=== PATIENT | male | born 1995 | race Caucasian/White ===

== ENCOUNTER 2018-03-04 19:38 | Emergency (ER) | payer BC ==
[2018-03-04 19:59] VITALS: BP 134/82
--- NOTE | 2018-03-04 20:08 | UC ---
Respiratory Complaint HPI - HPI Summary HPI Summary: Pt c/o bronchospastic cough X 1 week that he states is worsening. Pt c/o generalized malaise, nasal congestion, bronchospastic cough and chills. Pt states that he feels like he has "the flu and bronchitis" - History of Current Complaint Stated Complaint: CHEST CONGESTION, COUGH Time Seen by Provider: 03/04/18 19:50 Hx Obtained From: Patient Onset/Duration: Sudden Onset, Lasting Days - 7, Still Present, Worse Since - onset Timing: Intermittent Episodes Severity Initially: Mild Severity Currently: Moderate Pain Intensity: 5 Character: Cough: Nonproductive Aggravating Factors: Allergens, Deep Breaths, Recumbent Position Alleviating Factors: Nothing Associated Signs And Symptoms: Positive: Wheezing, URI, Nasal Congestion - Risk Factors Pulmonary Embolism Risk Factors: Negative Cardiac Risk Factors: Negative Pseudomonas Risk Factors: Negative Tuberculosis Risk Factors: Negative - Allergies/Home Medications Allergies/Adverse Reactions: Allergies Allergy/AdvReac Type Severity Reaction Status Date / Time Antibiotic related to Allergy Swelling Uncoded 03/04/18 20:02 Augmentin Throat augmentin Allergy Hives Uncoded 03/04/18 20:00 Home Medications: Home Medications Dextromethorphan HBr [Vicks Dayquil Cough] 1 dose PO SEE INSTRUCTIONS PRN [History Confirmed 03/04/18] PMH/Surg Hx/FS Hx/Imm Hx Previously Healthy: Yes Other History Of: Negative For: HIV, Hepatitis B, Hepatitis C, Anticoagulant Therapy - Surgical History Surgical History: Yes Surgery Procedure, Year, and Place: left eye skin removal; tonsils 2017 - Family History Known Family History: Positive: Cardiac Disease, Hypertension Negative: Diabetes - Social History Occupation: Employed Full-time Lives: With Family Alcohol Use: Occasionally Substance Use Type: None Smoking Status (MU): Former Smoker Type: Cigarettes Amount Used/How Often: 1 ppd Have You Smoked in the Last Year: No When Did the Patient Quit Smoking/Using Tobacco: 15yrs Household Exposure Type: Cigarettes Review of Systems Constitutional: Chills, Fatigue Skin: Negative Eyes: Negative ENT: Sore Throat Respiratory: Cough Cardiovascular: Negative Gastrointestinal: Negative Genitourinary: Negative Motor: Negative Neurovascular: Negative Musculoskeletal: Myalgia Neurological: Negative Psychological: Negative Is Patient Immunocompromised?: No All Other Systems Reviewed And Are Negative: Yes Physical Exam Triage Information Reviewed: Yes Appearance: Ill-Appearing Vital Signs: Initial Vital Signs Temp 99.4 F 03/04/18 19:46 Pulse 97 03/04/18 19:46 Resp 20 03/04/18 19:46 BP 134/82 03/04/18 19:46 Pulse Ox 97 03/04/18 19:46 Vital Signs Reviewed: Yes Eye Exam: Normal ENT: Positive: Nasal congestion Dental Exam: Normal Neck exam: Normal Respiratory Exam: Other Respiratory: Positive: Wheezing Cardiovascular Exam: Normal Musculoskeletal Exam: Normal Neurological Exam: Normal Psychological Exam: Normal Skin Exam: Normal UC Diagnostic Evaluation - Laboratory O2 Sat by Pulse Oximetry: 97 Respiratory Course/Dx - Differential Dx/Diagnosis Differential Diagnosis/HQI/PQRI: Bronchitis, Influenza, SARS Provider Diagnoses: Bronchitis Discharge - Sign-Out/Discharge Documenting (check all that apply): Discharge/Admit/Transfer - Discharge Plan Condition: Stable Disposition: HOME Prescriptions: Albuterol HFA INHALER* [Ventolin HFA Inhaler*] 1 - 2 puff INH Q6H PRN #1 mdi PRN Reason: Sob/Wheezing Azithromycin TAB* [Zithromax TAB (Z-JAMI) 250 mg #6 tabs] 2 tab PO .TODAY, THEN 1 DAILY #1 jami Benzonatate CAP* [Tessalon 100 MG CAP*] 100 mg PO Q8H PRN #30 cap PRN Reason: Cough Patient Education Materials: Acute Bronchitis (ED) Forms: *Work Release Referrals: [facility] [place] [facility] REFERRAL [Outside] Non Staff,Doctor [Primary Care Provider] - - Billing Disposition and Condition Condition: STABLE Disposition: HOME
== END 2018-03-04 20:21 | disposition home or self-care (01) ==
LOC: UCCORT 19:38
DX: J40 Bronchitis, not specified as acute or chronic (principal); Z87.891 Personal history of nicotine dependence; Z88.3 Allergy status to other anti-infective agents
CPT/HCPCS: 99212; G0463